=== PATIENT | female | born 1950 | race Caucasian/White ===

== ENCOUNTER → 2018-05-18 | Outpatient (CLI) | payer MEDICARE, OTHER | LOC: CFH 12:56 | PROVIDERS: ATTEND Nurse Practitioner Family | DX: N64.4 Mastodynia (principal) | CPT/HCPCS: 77066 ==

== ENCOUNTER 2018-07-27 06:05 | Day surgery (SDC) | payer OTHER, MEDICARE ==
[~2018-07-27] VITALS: Ht 160 cm; Wt 106.9 kg
[~2018-07-27 06:05] MED LIST: ALBU5SOL6 INH; ALBU8.5H8 INH; ALLO300T PO; ASPI-496 PO; ATEN50TA41 PO; FLUT1AER IH; FURO40TA6 PO; LISI40TA PO; MAGN400C PO; METF500T5 PO; OMEG-133 PO; SIMV40TA3 PO; UBID100C24 PO; VERA240C2 PO
[2018-07-27] MEDS ORDERED: LACTATED RINGERS 1,000 ML IV SCH (07:00)
[2018-07-27] MEDS ORDERED: LIDOCAINE-MPF 1%, 2ML INFIL ONE (07:00)
[2018-07-27] MEDS ORDERED: PROPOFOL 10 MG/ML, 50ML ONE (08:05)
[2018-07-27] MEDS ORDERED: PROPOFOL 10 MG/ML, 20ML ONE (08:05)
[2018-07-27] MEDS ORDERED: FENTANYL PF 100 MCG/2ML IV PRN (09:00)
[2018-07-27] MEDS ORDERED: PROMETHAZINE 12.5 MG SUPP PR PRN (09:00)
[2018-07-27] MEDS ORDERED: ACETAMINOPHEN 325 MG TABLET PO PRN (09:00)
[2018-07-27] MEDS ORDERED: PROMETHAZINE 25 MG/ML, 1ML IV PRN (09:00)
[2018-07-27] MEDS ORDERED: ONDANSETRON ODT 8 MG PO PRN (09:00)
[2018-07-27] MEDS ORDERED: MIDAZOLAM 1 MG/ML, 2ML IV PRN (09:00)
[2018-07-27] MEDS ORDERED: PROMETHAZINE 25 MG SUPP PR PRN (09:00)
== END 2018-07-27 10:30 | disposition home or self-care (01) ==
LOC: OR 06:05 → OUT 10:30
PROVIDERS: ATTEND Internal Medicine Gastroenterology
DX: Z09 Encounter for follow-up examination after completed treatment for conditions other than malignant neoplasm (principal); K57.30 Diverticulosis of large intestine without perforation or abscess without bleeding; K64.1 Second degree hemorrhoids; M10.9 Gout, unspecified; J45.909 Unspecified asthma, uncomplicated; E11.9 Type 2 diabetes mellitus without complications; E78.00 Pure hypercholesterolemia, unspecified; I10 Essential (primary) hypertension; E03.9 Hypothyroidism, unspecified; Z90.710 Acquired absence of both cervix and uterus; Z98.890 Other specified postprocedural states; Z79.899 Other long term (current) drug therapy; Z88.8 Allergy status to other drugs, medicaments and biological substances; Z86.010 Personal history of colon polyps
CPT/HCPCS: 45378; 82962; J2704; J7120